=== PATIENT | female | born 1960 | race Caucasian/White ===

== ENCOUNTER 2023-12-14 10:13 | Day surgery (SDC) | payer MEDICARE, BC ==
[~2023-12-14] VITALS: Ht 152.4 cm; Wt 78.0 kg
[~2023-12-14 10:13] MED LIST: CLOP75TA2 PO; ECOT81TA5 PO; EQL50TAB2 PO; FURO20TA2 PO; GALZ25CA PO; INOS650T3 PO; METO1TAB87 PO; RA M500C PO; TRES1INJ2 SQ; VITA-243 PO; [UNRECOGNIZED DRUG - CODE] PO; [UNRECOGNIZED DRUG - OTHER] PO; fentaNYL 100 MCG/2 ML INJECTION As Ordered ONE
[2023-12-14] MEDS: PHENYLEPHRINE 2.5% OPHTH SOL 2ML OD SCH (10:35)
[2023-12-14] MEDS: TROPICAMIDE 1% OPHTH SOLN 15ML OD SCH (10:35)
[2023-12-14] MEDS: OFLOXACIN 0.3 % (OCUFLOX) OPTH SOL 5ML OD ONE (10:35)
[2023-12-14] MEDS: CYCLOPENTOLATE 1% OPHTH SOLN 2ML BTL OD SCH (10:35)
[2023-12-14] MEDS: LIDOCAINE 3.5 % 1ML OPHTH TOPICAL GEL OU ONE (10:36)
[2023-12-14] MEDS: PHENYLEPHRINE 10% OPHTH SOL 5ML OD PRN (11:03)
[2023-12-14] MEDS: BSS IRRIG/VANCO(10MG)/TOBRA(5MG)/EPINEPH(1:1000-0.5CC)500ML BAG-ORONLY As Ordered ONE (11:07)
[2023-12-14] MEDS: LIDOCAINE 1% SDV 5ML VIAL As Ordered ONE (11:07)
[2023-12-14] MEDS: CEFUROXIME 1MG/0.1ML INTRACAMERAL INJ As Ordered ONE (11:09)
[2023-12-14 11:36] VITALS: BP 157/70; TEMP 97.5; O2SAT 98
== END 2023-12-14 11:37 | disposition home or self-care (01) ==
LOC: M SDC 10:13
PROVIDERS: ATTEND Ophthalmology
DX: E11.36 Type 2 diabetes mellitus with diabetic cataract (principal); H25.11 Age-related nuclear cataract, right eye; I49.5 Sick sinus syndrome; Z95.0 Presence of cardiac pacemaker; Z95.5 Presence of coronary angioplasty implant and graft; L40.50 Arthropathic psoriasis, unspecified; Z79.82 Long term (current) use of aspirin; Z79.899 Other long term (current) drug therapy; Z79.4 Long term (current) use of insulin; Z88.8 Allergy status to other drugs, medicaments and biological substances; Z79.02 Long term (current) use of antithrombotics/antiplatelets
CPT/HCPCS: 66984; J0697; J3010; V2632

== ENCOUNTER 2023-12-21 09:18 | Day surgery (SDC) | payer MEDICARE, BC ==
[~2023-12-21] VITALS: Ht 152.4 cm; Wt 78.0 kg
[~2023-12-21 09:18] MED LIST changes: +PHENYLEPHRINE 10% OPHTH SOL 5ML OS PRN
[2023-12-21] MEDS: LIDOCAINE 3.5 % 1ML OPHTH TOPICAL GEL OU ONE (09:48)
[2023-12-21] MEDS: ATROPINE SULFATE 1% OPHTH SOLN 2ML BTL OS SCH (09:48)
[2023-12-21] MEDS: OFLOXACIN 0.3 % (OCUFLOX) OPTH SOL 5ML OS ONE (09:48)
[2023-12-21] MEDS: TROPICAMIDE 1% OPHTH SOLN 15ML OS SCH (09:48)
[2023-12-21] MEDS: PHENYLEPHRINE 2.5% OPHTH SOL 2ML OS SCH (09:48)
[2023-12-21] MEDS: LIDOCAINE 1% SDV 5ML VIAL As Ordered ONE (10:56)
[2023-12-21] MEDS: BSS IRRIG/VANCO(10MG)/TOBRA(5MG)/EPINEPH(1:1000-0.5CC)500ML BAG-ORONLY As Ordered ONE (10:57)
[2023-12-21] MEDS: CEFUROXIME 1MG/0.1ML INTRACAMERAL INJ As Ordered ONE (10:57)
[2023-12-21 11:25] VITALS: BP 187/78; TEMP 97.4; O2SAT 96
== END 2023-12-21 11:25 | disposition home or self-care (01) ==
LOC: M SDC 09:18
PROVIDERS: ATTEND Ophthalmology
DX: H25.12 Age-related nuclear cataract, left eye (principal); L40.9 Psoriasis, unspecified; K44.9 Diaphragmatic hernia without obstruction or gangrene; E11.9 Type 2 diabetes mellitus without complications; Z98.61 Coronary angioplasty status; Z79.899 Other long term (current) drug therapy; Z88.8 Allergy status to other drugs, medicaments and biological substances
CPT/HCPCS: 66984; J0697; V2632

== ENCOUNTER → 2025-09-15 | Outpatient (REF) | payer MEDICARE ==
[~2025-09-15] MED LIST changes: -EQL50TAB2 PO; -GALZ25CA PO; -PHENYLEPHRINE 10% OPHTH SOL 5ML OS PRN; +VITA1TAB82 PO; +ZINC25CA2 PO; -fentaNYL 100 MCG/2 ML INJECTION As Ordered ONE
== END ==
LOC: M LAB REF 18:21
PROVIDERS: ATTEND Nurse Practitioner Family
DX: R35.0 Frequency of micturition (principal)